=== PATIENT | male | born 1935 | race Caucasian/White ===

== ENCOUNTER 2017-01-17 11:19 | Observation (INO) | payer MEDICARE, OTHER ==
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
[2017-01-17 12:16] LABS: ABSOLUTE BASOPHILS # (AUTO) 0.1 10^3/uL (0.0-0.2); ABSOLUTE EOSINOPHILS # (AUTO) 0.5 10^3/uL (0.0-0.6); ABSOLUTE LYMPHOCYTES (AUTO) 2.4 10^3/uL (0.5-4.7); ABSOLUTE MONOCYTES (AUTO) 0.8 10^3/uL (0.1-1.4); ABSOLUTE NEUT (AUTO) 3.7 10^3/uL (1.7-8.2); BASOPHILS % (AUTO) 0.7 % (0-2); EOSINOPHILS % (AUTO) 6.9 % (0-6); HEMATOCRIT 40.9 % (37.9-51.0); HEMOGLOBIN 13.7 g/dL (13.5-17.0); HGB HCT DIFFERENCE 0.2; LYMPHOCYTES % (AUTO) 32.7 % (13-45); MEAN CORPUSCULAR HEMOGLOBIN 28.7 pg (27.0-33.4); MEAN CORPUSCULAR HGB CONC 33.5 g/dL (32.0-36.0); MEAN CORPUSCULAR VOLUME 86 fl (80-97); MONOCYTES % (AUTO) 10.2 % (3-13); RED BLOOD COUNT 4.77 10^6/uL (4.35-5.55); RED CELL DISTRIBUTION WIDTH 14.8 % (11.5-14.0); SEGMENTED NEUTROPHILS % (AUTO) 49.5 % (42-78); WHITE BLOOD COUNT 7.4 10^3/uL (4.0-10.5)
[2017-01-17 12:19] LABS: PARTIAL THROMBOPLASTIN TIME 32.1 SEC (23.5-35.8); PROTHROMBIN TIME 13.5 SEC (11.4-15.4)
[2017-01-17 12:44] LABS: ALANINE AMINOTRANSFERASE 25 U/L (21-72); ALBUMIN 3.7 g/dL (3.5-5.0); ALKALINE PHOSPHATASE 90 U/L (38-126); ANION GAP 12 (5-19); ASPARTATE AMINO TRANSFERASE 24 U/L (17-59); BILIRUBIN,DIRECT 0.3 mg/dL (0.0-0.4); BILIRUBIN,TOTAL 0.7 mg/dL (0.2-1.3); BLOOD UREA NITROGEN 18 mg/dL (7-20); CALCIUM 8.8 mg/dL (8.4-10.2); CARBON DIOXIDE 23 mmol/L (22-30); CHLORIDE 107 mmol/L (98-107); CREATINE KINASE 104 U/L (55-170); CREATININE RESULT 0.99 mg/dL (0.52-1.25); GLUCOSE 105 mg/dL (75-110); POTASSIUM 4.2 mmol/L (3.6-5.0); SODIUM 141.8 mmol/L (137-145); TOTAL PROTEIN 6.6 g/dL (6.3-8.2)
[2017-01-17 13:00] LABS: CREATINE KINASE MB 1.35 ng/mL (<4.55)
[2017-01-17 13:02] LABS: TROPONIN I < 0.012 ng/mL
[2017-01-17] MEDS ORDERED: ONDANSETRON 4 MG TAB.RAPDIS PO PRN (13:24)
[2017-01-17] MEDS ORDERED: ACETAMINOPHEN 325 MG TABLET PO PRN (13:24)
[2017-01-17] MEDS ORDERED: ONDANSETRON HCL INJ/PF 4 MG/2 ML SDV IV PRN (14:35)
[2017-01-17] MEDS ORDERED: ENOXAPARIN SODIUM INJ 40 MG/0.4 ML DISP.SYRIN SUBCUT ONE (15:00)
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
--- NOTE | 2017-01-17 19:20 | XCELERA REPORT ---
[address] [address] Transthoracic Echocardiogram Report Name: REED BREWSTER Age: 81 yrs Gender: Male : 1935 Patient Status: Inpatient Patient Location: \S\[facility]\S\A Study Date: 01/17/2017 04:25 PM Height: 67 in Weight: 159 lb BSA: 1.8 m2 Procedure: A complete two-dimensional transthoracic echocardiogram was performed (2D, M-mode, spectral and color flow Doppler). The study was technically difficult with many images being suboptimal in quality. Reason For Study: Right facial droop, right side weakness Ordering Physician: MARIA VICTORIA FULTON Performed By: Gokul Wright Interpretation Summary The study was technically difficult with many images being suboptimal in quality. Left ventricular systolic function is normal. Doppler measurements suggest impaired left ventricular relaxation, which is associated with grade I/IV or mild diastolic dysfunction There is borderline concentric left ventricular hypertrophy. The left ventricle is grossly normal size. Regional wall motion abnormalities cannot be excluded due to limited visualization. The right ventricle is borderline dilated. The right ventricular systolic function is normal. The left atrial size is normal. The right atrium is normal in size There is a trace to mild amount of mitral regurgitation There is no mitral valve stenosis. No aortic regurgitation is present. There is no aortic valve stenosis There is a trace to mild amount of tricuspid regurgitation There is mild pulmonary hypertension by echo Right ventricular systolic pressure is estimated to be elevated at 30- 40mmHg. Minimal pericardial effusion. No definite cardiac source of CVA/TIA noted on this particular trans- thoracic study. Consider REGINA if clinically indicated. May consider mobile cardiac telemetry monitoring (MCT) for ruling out transient AFIB. MMode/2D Measurements \T\ Calculations RVDd: 2.3 cm LVIDd: 6.0 cm FS: 26.3 % Ao root diam: 3.3 cm IVSd: 0.78 cm LVIDs: 4.4 cm EDV(Teich): 177.4 ml LVPWd: 0.79 cm ESV(Teich): 87.4 ml Ao root area: 8.4 cm2 EF(Teich): 50.7 % LA dimension: 3.4 cm Doppler Measurements \T\ Calculations MV E max marixa: MV P1/2t max marixa: Ao V2 max: LV V1 max P.6 cm/sec 69.1 cm/sec 148.6 cm/sec 2.3 mmHg MV A max marixa: MV P1/2t: 51.3 msec Ao max PG: LV V1 max: 97.2 cm/sec 8.8 mmHg 75.5 cm/sec MV E/A: 0.70 MVA(P1/2t): 4.3 cm2 MV dec slope: 394.8 cm/sec2 PA V2 max: TR max marixa: RAP systole: 94.3 cm/sec 280.4 cm/sec 10.0 mmHg PA max PG: TR max P.7 mmHg 3.6 mmHg RVSP(TR): 41.7 mmHg Left Ventricle The left ventricle is grossly normal size. There is borderline concentric left ventricular hypertrophy. Left ventricular systolic function is normal. Doppler measurements suggest impaired left ventricular relaxation, which is associated with grade I/IV or mild diastolic dysfunction. Regional wall motion abnormalities cannot be excluded due to limited visualization. Right Ventricle The right ventricle is borderline dilated. There is normal right ventricular wall thickness. The right ventricular systolic function is normal. Atria The right atrium is normal in size. The left atrial size is normal. Interarterial septum not well visualized and not well dopplered. Cannot comment on ASD/PFO presence. Mitral Valve The mitral valve leaflets are sclerotic, but show no functional abnormalities. There is no mitral valve stenosis. There is a trace to mild amount of mitral regurgitation. Aortic Valve The aortic valve is not well visualized secondary to technical limitations. There is no aortic valve stenosis. No aortic regurgitation is present. Tricuspid Valve The tricuspid valve is not well visualized secondary to technical limitations. There is no tricuspid stenosis. There is a trace to mild amount of tricuspid regurgitation. There is mild pulmonary hypertension by echo. Right ventricular systolic pressure is estimated to be elevated at 30-40mmHg. Pulmonic Valve The pulmonic valve is not well visualized. Great Vessels The aortic root is not well visualized. The inferior vena cava was not well visualized. Effusions Minimal pericardial effusion. Incidental Findings No definite cardiac source of CVA/TIA noted on this particular trans- thoracic study. Consider REGINA if clinically indicated. May consider mobile cardiac telemetry monitoring (MCT) for ruling out transient AFIB. : MARIA VICTORIA FULTON > Maris Wiggins
--- NOTE | 2017-01-17 19:35 | EKG REPORT ---
SEVERITY:- ABNORMAL ECG - SINUS RHYTHM LEFT ANTERIOR FASCICULAR BLOCK : Confirmed by: Maris Wiggins 17-Jan-2017 19:35:20
[2017-01-17] MEDS ORDERED: ATORVASTATIN CALCIUM 40 MG TABLET PO SCH (22:00)
[2017-01-18] MEDS ORDERED: ENOXAPARIN SODIUM INJ 40 MG/0.4 ML DISP.SYRIN SUBCUT SCH (08:00)
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
[2017-01-18] MEDS ORDERED: ASPIRIN 81 MG TABLET, ENT COATED PO SCH (10:00)
[2017-01-18 10:37] VITALS: BP 179/83
== END 2017-01-18 11:05 | disposition home or self-care (01) ==
LOC: ER 11:19 → EH 13:37 → 3W 01-18 00:22
PROVIDERS: ADMIT Emergency Medicine; ATTEND Emergency Medicine
DX: G45.9 Transient cerebral ischemic attack, unspecified (principal); M81.0 Age-related osteoporosis without current pathological fracture; M79.2 Neuralgia and neuritis, unspecified; R11.2 Nausea with vomiting, unspecified; Z79.899 Other long term (current) drug therapy; Z79.82 Long term (current) use of aspirin; Z98.890 Other specified postprocedural states; Z82.49 Family history of ischemic heart disease and other diseases of the circulatory system; Z87.11 Personal history of peptic ulcer disease; Z87.19 Personal history of other diseases of the digestive system
CPT/HCPCS: 93005; 99285; 96372; 96374; 36415; 82553; 82550; 85025; 85610; 85730; 80053; 84484; 93306; 93880; 70551; 71010; 70450; 93010; G0378 ×2; A9270; J1650 ×2; J3490 ×2; J2405

== ENCOUNTER 2017-01-28 12:49 | Inpatient (IN) | payer MEDICARE, OTHER ==
[2017-01-28 13:21] LABS: ABSOLUTE BASOPHILS # (AUTO) 0.1 10^3/uL (0.0-0.2); ABSOLUTE EOSINOPHILS # (AUTO) 0.7 10^3/uL (0.0-0.6); ABSOLUTE LYMPHOCYTES (AUTO) 1.9 10^3/uL (0.5-4.7); ABSOLUTE MONOCYTES (AUTO) 0.7 10^3/uL (0.1-1.4); ABSOLUTE NEUT (AUTO) 3.1 10^3/uL (1.7-8.2); EOSINOPHILS % (AUTO) 11.1 % (0-6); HEMATOCRIT 41.7 % (37.9-51.0); HEMOGLOBIN 13.9 g/dL (13.5-17.0); LYMPHOCYTES % (AUTO) 29.3 % (13-45); MEAN CORPUSCULAR HEMOGLOBIN 28.9 pg (27.0-33.4); MEAN CORPUSCULAR HGB CONC 33.4 g/dL (32.0-36.0); MEAN CORPUSCULAR VOLUME 87 fl (80-97); MONOCYTES % (AUTO) 10.1 % (3-13); RED BLOOD COUNT 4.81 10^6/uL (4.35-5.55); RED CELL DISTRIBUTION WIDTH 14.9 % (11.5-14.0); SEGMENTED NEUTROPHILS % (AUTO) 48.5 % (42-78); WHITE BLOOD COUNT 6.5 10^3/uL (4.0-10.5)
[2017-01-28 13:24] LABS: PROTHROMBIN TIME 13.4 SEC (11.4-15.4)
[2017-01-28 13:25] LABS: PARTIAL THROMBOPLASTIN TIME 26.5 SEC (23.5-35.8)
--- NOTE | 2017-01-28 13:30 | ER Document Report ---
ED General - General Chief Complaint: S/S of Possible Stroke Stated Complaint: POSSIBLE STROKE Time Seen by Provider: 01/28/17 13:17 TRAVEL OUTSIDE OF THE [place] IN LAST 30 DAYS: No - HPI Patient complains to provider of: left facial droop left upper extremity weakness left lower extremity weakne Notes: Patient was at his PCPs office after being reevaluated from admission one week prior for TIA. At that time patient had a right upper right lower extremity weakness. MRI Dopplers were performed on negative patient was discharged home a baby aspirin. During his office visit at 1205 patient sure that difficulty speaking will left face left upper left lower extremity paralysis denies any trauma. Patient was transported to the emergency room for further evaluation. Upon my evaluation patient is alert oriented with some garbled slurred speech - Related Data Allergies/Adverse Reactions: morphine Allergy (Verified 01/17/17 14:34) Past Medical History - Social History Smoking Status: Unknown if Ever Smoked Family History: Hypertension - Past Medical History Cardiac Medical History: Denies: Hx Coronary Artery Disease, Hx Heart Attack, Hx Hypertension Pulmonary Medical History: Reports: Hx Pneumonia Neurological Medical History: Denies: Hx Cerebrovascular Accident, Hx Seizures Endocrine Medical History: Denies: Hx Diabetes Mellitus Type 1, Hx Diabetes Mellitus Type 2 Musculoskeltal Medical History: Reports Hx Arthritis Past Surgical History: Reports: Hx Bowel Surgery - Surgery for stomach ulcers, surgery for locked intestines 2, 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 - Immunizations Hx Diphtheria, Pertussis, Tetanus Vaccination: Yes Review of Systems - Review of Systems Constitutional: No symptoms reported EENT: No symptoms reported Cardiovascular: No symptoms reported Respiratory: No symptoms reported Gastrointestinal: No symptoms reported Genitourinary: No symptoms reported Male Genitourinary: No symptoms reported Musculoskeletal: Other - Upper extremity lower extremity weakness facial droop Skin: No symptoms reported Hematologic/Lymphatic: No symptoms reported Neurological/Psychological: No symptoms reported Physical Exam - Vital signs Vitals: Temp Pulse Resp BP Pulse Ox 97.6 F 61 23 H 176/87 H 96 01/28/17 12:55 01/28/17 12:55 01/28/17 12:55 01/28/17 12:55 01/28/17 12:55 Interpretation: Normal - General General appearance: Appears well, Alert - HEENT Head: Normocephalic, Atraumatic Eyes: Normal Pupils: PERRL - Respiratory Respiratory status: No respiratory distress Chest status: Nontender Breath sounds: Normal Chest palpation: Normal - Cardiovascular Rhythm: Regular Heart sounds: Normal auscultation Murmur: No - Abdominal Inspection: Normal Distension: No distension Bowel sounds: Normal Tenderness: Nontender Organomegaly: No organomegaly - Back Back: Normal, Nontender - Extremities General upper extremity: Normal inspection, Nontender, Normal color, Normal ROM , Normal temperature General lower extremity: Normal inspection, Nontender, Normal color, Normal ROM , Normal temperature, Normal weight bearing. No: Al's sign - Neurological Neuro grossly intact: Yes Cognition: Normal Sabine Coma Scale Eye Opening: Spontaneous Sabine Coma Scale Verbal: Oriented Sabine Coma Scale Motor: Obeys Commands Sabine Coma Scale Total: 15 Notes: Please refer to NIH score - Psychological Associated symptoms: Normal affect, Normal mood - Skin Skin Temperature: Warm Skin Moisture: Dry Skin Color: Normal Course - Re-evaluation Re-evalutation: 01/28/17 13:26 Patient presentation concerning for stroke. Patient has left facial droop and slurred speech complete paralysis of the left upper family left lower extremity. Patient was seen this recently one week ago evaluated for TIA. Symptoms started 1205. Patient's NIH score is as documented. I did discuss at this time with patient waiting for family members to arrive about administration of TPA 01/28/17 13:56 Did discuss TPA with family at bedside. At this time I did discuss with radiology we will attempt to obtain an MRI to further evaluate the patient as family is unsure about giving tpa at this time 01/28/17 14:19 Discussed with [facility] neurology [place] who encourages tpa before mri. Agrees that patient could be a candidate for 4.5 hours out. Again discuss with family. States that they will at the scene with MRI says but states that they are leaning towards TPA at this time. 01/28/17 14:56 MRI confirmed right-sided stroke. Patient's NIH score is still the same nurse been no improvement of the patient's symptoms. Again discuss with family family this time agrees with thrombolytics as a the patient is a good candidate. TPA will be administered. I did discuss with hospitalist agrees to admit the patient to ICU for further evaluation. 01/28/17 15:03 01/28/17 18:51 Patient did have improvement of symptoms after ministration of TPF - Vital Signs Vital signs: Temp Pulse Resp BP Pulse Ox 97.9 F 61 19 162/78 H 100 01/28/17 17:03 01/28/17 18:35 01/28/17 18:35 01/28/17 18:35 01/28/17 18:35 - Laboratory Result Diagrams: 01/28/17 13:11 01/28/17 13:11 Laboratory results interpreted by me: 01/28/17 01/28/17 13:11 13:11 RDW 14.9 H Eosinophils % 11.1 H Absolute Eosinophils 0.7 H Chloride 108 H Direct Bilirubin 0.5 H Critical Care Note - Critical Care Note Total time excluding time spent on procedures (mins): 90 Comments: Time spent discussion the administration TPA educating family educate patient reevaluating patient discussing with consulting neurology at [facility] and the hospitalist Discharge - Discharge Clinical Impression: acute right-sided CVA Condition: Good Disposition: ADMITTED INPATIENT Admitting Provider: Hospitalist - [facility] Unit Admitted: ICU ED NIH Stroke Scale - NIH Stroke Scale *: 1. NIH scale should be completed with appropriate accompanying assessment tools. *: 2. The NIH should reflect what the patient is capable of doing and should not be coached by the clinician. 1a. Level of Consciousness: 0=Alert;keenly responsive -: 1=Drowsy -: 2=Obtunded -: 3=Coma/unresponsive or reflex to noxious stimuli. 1a. Responses: 0 1b. Orientation Questions: a. What month is it? -: b. How old are you? -: 0=Answers both questions correctly. -: 1=Answers one question correctly or patient is intubated or has orotracheal trauma. -: 2=Answers neither question correctly. 1b. Responses: 0 1c. Response to commands: a. Open and close eyes? -: b. Grocery Stock Clerk and release hand? -: Credit is given despite weakness. Demonstration of task is permitted. Substitute command if hands cannot be used. -: 0=Performs both tasks correctly -: 1=Performs one task correctly -: 2=Performs neither task correctly 1c. Responses: 0 2. Gaze: Establish eye contact and instruct patient to "Follow my finger" -: 0=Normal -: 1=Partial gaze palsy. Gaze is abnormal in one or both eyes, but where forced deviation or total gaze paresis is not present. -: 2=Forced deviation or total gaze paresis. 2. Responses: 0 3. Visual Sanders: Sees fingers in all four quadrants. -: 0=No visual loss. -: 1=Partial hemianopsia. -: 2=Complete hemianopsia. -: 3=Bilateral hemianopsia (including Cortical blindness) 3. Responses: 0 4. Facial Movement: Instruct patient to: -: a. Show me your teeth -: b. Raise your eyebrows -: c. Close your eyes -: d. Smile -: 0=Normal symmetrical movement -: 1=Minor paralysis (flattened nasolabial fold, asymmetry on smiling). -: 2=Partial paralysis (total or near total paralysis of lower face). -: 3=Complete paralysis of upper and lower face 4. Responses: 3 5. Motor functions (left arm): Alternate sides and extend each arm with palms down (90 degrees if sitting or 45 degrees for supine). -: 0=No drift;limb holds for full 10 seconds. -: 1=Drift; limb holds but drifts down before full 10 seconds, but does not hit bed. -: 2=Some effort against gravity; limb cannot get to or maintain position. -: 3=No effort against gravity; limb falls. -: 4=No movement. -: UN=Amputation, joint fusion, explain in comments. 5. Responses (left arm): 4 5. Motor Functions (right arm): Alternate sides and extend each arm with palms down (90 degrees if sitting or 45 degrees for supine). -: 0=No drift;limb holds for full 10 seconds. -: 1=Drift; limb holds but drifts down before full 10 seconds, but does not hit bed. -: 2=Some effort against gravity; limb cannot get to or maintain position. -: 3=No effort against gravity; limb falls. -: 4=No movement. -: UN=Amputation, joint fusion, explain in comments. 5. Responses (right arm): 0 6. Motor Functions (left leg): With patient lying supine, alternate sides and extend each leg (30 degrees always while supine). -: 0=No drift, leg holds position for full 5 seconds -: 1=Drift; leg falls before full 5 seconds but does not hit bed. -: 2=Some effort against gravity, leg falls to bed but some effort against gravity. -: 3=No effort against gravity, leg falls to bed immediately. -: 4=No movement. -: UN=Amputation, joint fusion; explain in comments. 6. Responses (left leg): 4 6. Motor Functions (right leg): With patient lying supine, alternate sides and extend each leg (30 degrees always while supine). -: 0=No drift, leg holds position for full 5 seconds -: 1=Drift; leg falls before full 5 seconds but does not hit bed. -: 2=Some effort against gravity, leg falls to bed but some effort against gravity. -: 3=No effort against gravity, leg falls to bed immediately. -: 4=No movement. -: UN=Amputation, joint fusion; explain in comments. 6. Responses (right leg): 0 7. Limb Ataxia: With eyes open instruct patient to: -: a. "Touch your finger to your nose". -: b. "Touch your heel to your ruelas" -: 0=Absent -: 1=Present in one limb. -: 2=Present in two limbs. -: UN=Amputation or joint fusion; explain in comments. 7. Responses: 0 8. Sensory: Test sensation using pinprick or noxious stimuli. Test as many body parts as possible. -: 0=Normal;no sensory loss -: 1=Mile to moderate sensory loss (patient feels pin prick but is less sharp on affected side). -: 2=Severe or total sensory loss. 8. Responses: 0 9. Best Language: Instruct patient to: -: a. "Describe what you see in this picture." -: b. "Name the items in this picture." -: c. "Read these sentences." -: 0=No aphasia, normal -: 1=Mild to moderate aphasia. -: 2=Severe aphasia -: 3=Mute, global aphasia, no usable speech or auditory comprehension. 9. Responses: 1 10. Articulation, Dysarthia: Instruct patient to: -: "Read these words" or "Repeat these words" -: 0=Normal -: 1=Mild to moderate; patient may slur some words but can be understood without difficulty. -: 2=Severe; patients speech so slurred as to be unintelligible in the absence of dysphasia. -: UN=Intubated or other physical barrier, explain in comments. 10. Responses: 1 11. Extinction or inattention: 0=No abnormality -: 1= Visual, tactile, auditory, spatial, or personal inattention or extinction to bilateral simulation in one or the sensory modalities. -: 2=Profound alexis-inattention or alexis-inattention to more than one modality; does not recognize own hand. 11. Responses: 0 Total Score: 13
[2017-01-28 13:40] LABS: ALANINE AMINOTRANSFERASE 28 U/L (21-72); ALBUMIN 3.9 g/dL (3.5-5.0); ALKALINE PHOSPHATASE 91 U/L (38-126); ANION GAP 6 (5-19); ASPARTATE AMINO TRANSFERASE 30 U/L (17-59); BILIRUBIN,DIRECT 0.5 mg/dL (0.0-0.4); BILIRUBIN,TOTAL 0.7 mg/dL (0.2-1.3); BLOOD UREA NITROGEN 19 mg/dL (7-20); CALCIUM 9.1 mg/dL (8.4-10.2); CARBON DIOXIDE 27 mmol/L (22-30); CHLORIDE 108 mmol/L (98-107); CREATINE KINASE 65 U/L (55-170); CREATININE RESULT 0.93 mg/dL (0.52-1.25); GLUCOSE 99 mg/dL (75-110); POTASSIUM 4.4 mmol/L (3.6-5.0); SODIUM 141.2 mmol/L (137-145); TOTAL PROTEIN 6.9 g/dL (6.3-8.2)
[2017-01-28 13:53] LABS: CREATINE KINASE MB 1.07 ng/mL (<4.55)
[2017-01-28 13:55] LABS: TROPONIN I < 0.012 ng/mL
[2017-01-28] MEDS ORDERED: LABETALOL HCL INJ 20 MG/4 ML DISP.SYRIN IV ONE (13:57)
[2017-01-28] MEDS ORDERED: ALTEPLASE INJ 100 MG VIAL ONE (14:37)
[2017-01-28] MEDS ORDERED: ALBUTEROL SULFATE 0.083% NEB 2.5 MG/3 ML AMPUL NEB PRN (15:34)
[2017-01-28] MEDS ORDERED: ACETAMINOPHEN 325 MG TABLET PO PRN (15:34)
[2017-01-28] MEDS ORDERED: ONDANSETRON 4 MG TAB.RAPDIS PO PRN (15:34)
--- NOTE | 2017-01-28 15:54 | PDOC H&P ---
History of Present Illness Admission Date/PCP: RADHA NANCE Patient complains of: Left hemiparesis History of Present Illness: REED BREWSTER is a 81 year old male who is in the hospital several weeks ago with a TIA with an unremarkable workup who presents with an acute CVA. Patient was with his urgent care and was sitting in a chair and then noticed that he was unable to move his left side and was unable to speak. Since that time he has had some significant dysarthria but continues with left-sided hemiparesis. His strength was initially 0 out of 5. Patient had a head CT which was negative. The emergency physician appropriately advised to give thrombolytics. The patient's family was uncertain and an MRI was done to evaluate. Patient was found to have an acute right sided davin infarction. Neurology was consulted by the emergency physician who agreed the patient should have thrombolytics. Patient's is at the bedside agreed to this. With time my exam the patient was about to receive thrombolytics in he did have some improvement and was able to move his left arm and leg slightly. The decision was made to go ahead and give the patient thrombolytics in spite of having some slight improvement. Patient denies any visual loss. He denies any dysphagia but has had the dysarthria. He denies any sensory loss just has the left-sided hemiparesis. Past Medical History Cardiac Medical History: Denies: Coronary Artery Disease, Myocardial Infarction, Hypertension Pulmonary Medical History: Reports: Pneumonia EENT Medical History: Reports: None Neurological Medical History: Denies: Seizures Endocrine Medical History: Reports: None Renal/ Medical History: Reports: None Malignancy Medical History: Reports: None GI Medical History: Reports: None Musculoskeltal Medical History: Reports: Arthritis Skin Medical History: Reports: None Psychiatric Medical History: Reports: None Traumatic Medical History: Reports: None Past Surgical History Past Surgical History: Reports: None Social History Information Source: Patient Lives with: Spouse/Significant other Smoking Status: Never Smoker Frequency of Alcohol Use: None Hx Recreational Drug Use: No Drugs: None Hx Prescription Drug Abuse: No - Advance Directive Resuscitation Status: Full Code Surrogate healthcare decision maker:: Family History Family History: Hypertension Parental Family History Reviewed: Yes Children Family History Reviewed: No Sibling(s) Family History Reviewed.: No Medication/Allergy Home Medications: Pregabalin [Lyrica 100 mg Capsule] 100 mg PO Q12 01/17/17 Tramadol HCl [Ultram 50 mg Tablet] 50 mg PO Q12 01/17/17 Acetaminophen [Tylenol 325 mg Tablet] 650 mg PO Q4HP PRN tablet 01/18/17 Aspirin [Ecotrin 81 mg EC Tablet] 81 mg PO DAILY tabec 01/18/17 Ondansetron [Zofran Odt 4 mg Tablet] 4 mg PO Q4HP PRN tab.rapdis 01/18/17 Allergies/Adverse Reactions: morphine Allergy (Verified 01/17/17 14:34) Review of Systems Constitutional: ABSENT: chills, fever(s), headache(s), weight gain, weight loss Eyes: ABSENT: visual disturbances Ears: ABSENT: hearing changes Cardiovascular: ABSENT: chest pain, dyspnea on exertion, edema, orthropnea, palpitations Respiratory: ABSENT: cough, hemoptysis Gastrointestinal: ABSENT: abdominal pain, constipation, diarrhea, hematemesis, hematochezia, nausea, vomiting Genitourinary: ABSENT: dysuria, hematuria Musculoskeletal: ABSENT: joint swelling Integumentary: ABSENT: rash, wounds Neurological: PRESENT: as per HPI Psychiatric: ABSENT: anxiety, depression Endocrine: ABSENT: cold intolerance, heat intolerance, polydipsia, polyuria Hematologic/Lymphatic: ABSENT: easy bleeding, easy bruising Physical Exam Vital Signs: Temp Pulse Resp BP Pulse Ox 97.6 F 58 L 16 178/97 H 100 01/28/17 12:55 01/28/17 15:20 01/28/17 15:20 01/28/17 15:20 01/28/17 15:20 Intake & Output 01/27/17 01/28/17 01/29/17 06:59 06:59 06:59 Weight 62.6 kg General appearance: PRESENT: no acute distress, well-developed, well-nourished Head exam: PRESENT: atraumatic, normocephalic Eye exam: PRESENT: conjunctiva pink, EOMI, PERRLA. ABSENT: scleral icterus Ear exam: PRESENT: normal external ear exam Mouth exam: PRESENT: moist, tongue midline Neck exam: ABSENT: carotid bruit, JVD, lymphadenopathy, thyromegaly Respiratory exam: PRESENT: clear to auscultation mariana. ABSENT: rales, rhonchi, wheezes Cardiovascular exam: PRESENT: RRR. ABSENT: diastolic murmur, rubs, systolic murmur Vascular exam: PRESENT: normal capillary refill GI/Abdominal exam: PRESENT: normal bowel sounds, soft. ABSENT: distended, guarding, mass, organolmegaly, rebound, tenderness Rectal exam: PRESENT: deferred Extremities exam: ABSENT: calf tenderness, clubbing, pedal edema Neurological exam: PRESENT: alert, awake, oriented to person, oriented to place , oriented to time, oriented to situation, CN II-XII grossly intact, motor sensory deficit - Patient has right-sided facial droop along with left-sided hemiparesis. Strength is 1 out of 5 on the left upper and lower extremity. Also has some dysarthria. Psychiatric exam: PRESENT: appropriate affect Skin exam: PRESENT: dry, intact, warm. ABSENT: cyanosis, rash Results Laboratory Results: 01/28/17 13:11 01/28/17 13:11 01/28/17 01/28/17 13:11 13:11 WBC 6.5 RBC 4.81 Hgb 13.9 Hct 41.7 MCV 87 MCH 28.9 MCHC 33.4 RDW 14.9 H Plt Count 277 Seg Neutrophils % 48.5 Lymphocytes % 29.3 Monocytes % 10.1 Eosinophils % 11.1 H Basophils % 1.0 Absolute Neutrophils 3.1 Absolute Lymphocytes 1.9 Absolute Monocytes 0.7 Absolute Eosinophils 0.7 H Absolute Basophils 0.1 Sodium 141.2 Potassium 4.4 Chloride 108 H Carbon Dioxide 27 Anion Gap 6 BUN 19 Creatinine 0.93 Est GFR ( Amer) > 60 Est GFR (Non-Af Amer) > 60 Glucose 99 Calcium 9.1 Total Bilirubin 0.7 AST 30 ALT 28 Alkaline Phosphatase 91 Total Protein 6.9 Albumin 3.9 01/28/17 01/28/17 13:11 13:11 Creatine Kinase 65 CK-MB (CK-2) 1.07 Troponin I < 0.012 Impressions: Chest X-Ray 01/28/17 12:55 IMPRESSION: No acute findings Head CT 01/28/17 12:55 IMPRESSION: No acute findings Head MRI 01/28/17 13:54 IMPRESSION: Diffusion-weighted images are positive for acute nonhemorrhagic infarct in the right half of the davin Elsewhere, moderate chronic small vessel ischemic changes are present Assessment & Plan - Diagnosis (1) CVA (cerebral vascular accident) Is this a current diagnosis for this admission?: YesPlan: Patient was identified to have a right davin CVA on MRI. Patient is in the process of getting thrombo-lytics as we speak. We'll admit the patient to the intensive care unit for postthrombolytic care. Will consult PT OT and speech therapy to start tomorrow. Patient has been on aspirin every day. He was here last month and had an echocardiogram which showed no thrombus. He also had carotid Dopplers done which showed no stenosis. Those tests will not be repeated. (2) Neuralgia Is this a current diagnosis for this admission?: Yes (3) Osteoporosis Is this a current diagnosis for this admission?: Yes - Time Time Spent: 50 to 70 Minutes - Inpatient Certification Medical Necessity: Need Close Monitoring Due to Risk of Patient Decompensation, Need for Neurological Checks - Plan Summary Plan Summary: Patient is admitted to the intensive care unit for close monitoring post thrombolytic therapy
--- NOTE | 2017-01-28 16:59 | EKG REPORT ---
SEVERITY:- ABNORMAL ECG - SINUS RHYTHM LAD, CONSIDER LEFT ANTERIOR FASCICULAR BLOCK : Confirmed by: Maris Wiggins 28-Jan-2017 16:57:46
[2017-01-28] MEDS ORDERED: HYDRALAZINE HCL INJ/PF 20 MG/1 ML SDV IV PRN (17:56)
[2017-01-28] MEDS ORDERED: PROPOFOL 0 ML IV ONE (18:01)
[2017-01-28] MEDS: NORMAL SALINE 1000 ML 1,000 ML IV PRN (19:29)
[2017-01-28] MEDS: FAMOTIDINE INJ/PF 20 MG/2 ML SDV IV SCH (21:20)
[2017-01-29 04:43] LABS: HEMATOCRIT 41.8 % (37.9-51.0); HEMOGLOBIN 14.1 g/dL (13.5-17.0); HGB HCT DIFFERENCE 0.5; MEAN CORPUSCULAR HEMOGLOBIN 28.7 pg (27.0-33.4); MEAN CORPUSCULAR HGB CONC 33.9 g/dL (32.0-36.0); MEAN CORPUSCULAR VOLUME 85 fl (80-97); RED BLOOD COUNT 4.92 10^6/uL (4.35-5.55); RED CELL DISTRIBUTION WIDTH 14.3 % (11.5-14.0); WHITE BLOOD COUNT 9.8 10^3/uL (4.0-10.5)
[2017-01-29] MEDS: NORMAL SALINE 1000 ML 1,000 ML IV PRN (05:09)
[2017-01-29 05:12] LABS: ALANINE AMINOTRANSFERASE 28 U/L (21-72); ALBUMIN 3.6 g/dL (3.5-5.0); ALKALINE PHOSPHATASE 83 U/L (38-126); ANION GAP 9 (5-19); ASPARTATE AMINO TRANSFERASE 25 U/L (17-59); BILIRUBIN,DIRECT 0.3 mg/dL (0.0-0.4); BILIRUBIN,TOTAL 0.8 mg/dL (0.2-1.3); BLOOD UREA NITROGEN 15 mg/dL (7-20); CALCIUM 9.3 mg/dL (8.4-10.2); CARBON DIOXIDE 25 mmol/L (22-30); CHLORIDE 108 mmol/L (98-107); CREATININE RESULT 0.81 mg/dL (0.52-1.25); GLUCOSE 89 mg/dL (75-110); POTASSIUM 4.3 mmol/L (3.6-5.0); SODIUM 142.4 mmol/L (137-145); TOTAL PROTEIN 5.8 g/dL (6.3-8.2)
[2017-01-29] MEDS: PREGABALIN 100 MG CAPSULE PO SCH ×2 (09:29→21:51)
[2017-01-29] MEDS: FAMOTIDINE INJ/PF 20 MG/2 ML SDV IV SCH ×2 (09:30→22:34)
[2017-01-29] MEDS ORDERED: ASPIRIN/DIPYRIDAMOLE 25-200 MG 1 CAP.SR CPMP.12HR PO SCH (10:00)
--- NOTE | 2017-01-29 10:10 | PDOC PROGRESS REPORT ---
Subjective Progress Note for:: 01/29/17 Subjective:: Patient denies any complaints. He has had resolution of his left-sided weakness Physical Exam Vital Signs: Temp Pulse Resp BP Pulse Ox 97.7 F 68 19 150/80 H 98 01/29/17 08:00 01/29/17 09:37 01/29/17 09:37 01/29/17 09:00 01/29/17 09:37 Intake & Output 01/28/17 01/29/17 01/30/17 06:59 06:59 06:59 Intake Total 1175 Output Total 1825 100 Balance -650 -100 Weight 60 kg General appearance: PRESENT: no acute distress Eye exam: PRESENT: conjunctiva pink. ABSENT: scleral icterus Ear exam: PRESENT: normal external ear exam Mouth exam: PRESENT: moist, tongue midline Neck exam: ABSENT: JVD Respiratory exam: PRESENT: clear to auscultation mariana. ABSENT: rales, rhonchi, wheezes Cardiovascular exam: PRESENT: RRR. ABSENT: diastolic murmur, rubs, systolic murmur GI/Abdominal exam: PRESENT: normal bowel sounds, soft. ABSENT: distended, guarding, mass, organolmegaly, rebound, tenderness Extremities exam: ABSENT: calf tenderness, clubbing, pedal edema Neurological exam: PRESENT: alert, awake, oriented to person, oriented to place , oriented to time, oriented to situation, CN II-XII grossly intact. ABSENT: motor sensory deficit Psychiatric exam: PRESENT: appropriate affect Skin exam: PRESENT: dry, intact, warm. ABSENT: cyanosis, rash Results Laboratory Results: 01/29/17 04:20 01/29/17 04:20 01/29/17 01/29/17 04:20 04:20 WBC 9.8 RBC 4.92 Hgb 14.1 Hct 41.8 MCV 85 MCH 28.7 MCHC 33.9 RDW 14.3 H Plt Count 272 Sodium 142.4 Potassium 4.3 Chloride 108 H Carbon Dioxide 25 Anion Gap 9 BUN 15 Creatinine 0.81 Est GFR ( Amer) > 60 Est GFR (Non-Af Amer) > 60 Glucose 89 Calcium 9.3 Total Bilirubin 0.8 AST 25 ALT 28 Alkaline Phosphatase 83 Total Protein 5.8 L Albumin 3.6 Impressions: Chest X-Ray 01/28/17 12:55 IMPRESSION: No acute findings Head CT 01/28/17 12:55 IMPRESSION: No acute findings Head MRI 01/28/17 13:54 IMPRESSION: Diffusion-weighted images are positive for acute nonhemorrhagic infarct in the right half of the davin Elsewhere, moderate chronic small vessel ischemic changes are present Assessment & Plan - Diagnosis (1) CVA (cerebral vascular accident) Is this a current diagnosis for this admission?: YesPlan: Patient was identified to have a right davin CVA on MRI. Patient received Lasix yesterday with complete resolution of his symptoms. We'll monitor for another 24 hours and will start on Aggrenox. He already had an echocardiogram and carotid Doppler within the last month during his previous admission. (2) Neuralgia Is this a current diagnosis for this admission?: Yes (3) Osteoporosis Is this a current diagnosis for this admission?: Yes - Time Time Spent with patient: 25-34 minutes - Inpatient Certification Medical Necessity: Need for Neurological Checks - Plan Summary Plan Summary: Transfer out of the unit to [facility] level floor.
--- NOTE | 2017-01-29 13:49 | ST Inp Modified Barium Swallow ---
Medical Diagnosis - Medical Diagnoses Medical Diagnosis Description & ICD-10 Code(s): s/sx of aspiration - ICD-10 Tx Diagnosis Coding (1) Dysphagia, oropharyngeal phase ICD-10 Code(s): R13.12 - DYSPHAGIA, OROPHARYNGEAL PHASE [place] [facility] [place]: 01[place]29[place] Date of Onset: 01/28/17 - History History Obtained From: Patient - per EMR -: Medical - per EMR; CVA, unable to move left side, unable to speak, dysarthria , neuralgia, osteoporosis, facial droop, left hemiparisis. Chest imaging WNL. Head MRI shows acute nonhemorragic infarct right davin. PMHx: PNA, arthritis, TIA. Medications: Medications Reviewed Allergies: Refer to medical record - Subjective Current Nutritional Means: PO Current PO Diet: Regular Current Symptoms: other - change in vocal quality at bedside Pain: 0/5 - Objective Assessment: Upright, Left Lateral - Food Trials Food Trials Used: Thin liquids, Pureed, Soft solids The Patient: Was Able to Self Feed - Assessment Labial Function: Within Normal Limits Lingual Function: Within Normal Limits Mandibular Function: Within Normal Limits Velo-Pharyngeal Function: Unremarkable Laryngeal Function: Volitional Swallow, Weak Cough - Pharyngeal Stage Initiation of Pharyngeal Stage: Normal Decreased Laryngeal Elevation: Yes - mild Reduced Velo-Pharyngeal Closure: no Reduced Pressure Generation: Yes - mild Reduced Tongue Base Retraction: Yes - mild Pre-Swallowing Pooling in Valleculae: None Pre-Swallowing Pooling in Pyriforms: None Reduced Thyro-Hyiod Approximation: Yes - mild Reduced Epiglottic Excursion: No Reduced Pharyngeal Peristalsis: No Multiple Swallows With: Cleared w/ Dry Swallow Post Swallow Residuals in Valleculae: Mild - on puree and soft solids Post Swallow Residuals in Pyriforms: Mild - trace on soft solids - Esophageal Stage Esophageal Stage Comments: trace residuals of soft solids below level of UES. - Impression/Summary Tracheal Aspiration: yes - x1 on large swallow of thin, delayed cough, during swallow Effective Compensatory Strategies: chin tuck - to clear residuals on second swallow Patient Presents With: Oral-Pharyngeal dysph. - mild Risk of Aspiration: Mild - Recommendations NPO: no Solid Diet Recommendations: Mechanical Soft, Chopped Meat Liquid Diet Recommendations: Thin Strict Aspitarion Precautions: Yes Dysphagia Therapy with [employer]ER: Yes, Inpatient Recommended Techniques: Fully Upright During Meal, Dry Swallow After Bite - with chin tuck, Small Bites and Sips Supervision: Distant Other Recommendations: 1) DIET: Recommend mechanical soft cut meats and thin liquids. NO STRAWS. 2) STRATEGIES: second swallow with chin tuck with all consistencies. 3) Acute care ST to treat x2 a week for dysphagia. SUMMARY: Pt presents with a mild oropharyngeal dysphagia characterized by reduced base of tongue, decrease laryngeal elevation, and reduced hyolaryngeal elevation. Pt observed to aspirate x1 on large swallow of thin, no penetration or aspiration observed on small swallows. Pt observed to have mild residuals of solids in valleculae which cleared with second swallow with chin tuck. ST spoke with MD regarding recommendations, MD in agreement and provided ST with telephone order for diet change. - Time Total Time: 25 Total Timed Minutes: 0 ST F.L. Impairment Category - Rationale Based On Rationale Based On: Clin Find., Obj Measures - Swallowing Current G8996: CJ 20-39% Impaired Goal G8997: CI 1-19% Impaired
[2017-01-30] MEDS: NORMAL SALINE 1000 ML 1,000 ML IV PRN (06:23)
[2017-01-30] MEDS ORDERED: FAMOTIDINE 20 MG TABLET PO SCH (10:00)
[2017-01-30] MEDS ORDERED: ASPIRIN/DIPYRIDAMOLE 25-200 MG 1 CAP.SR CPMP.12HR PO SCH (10:00)
--- NOTE | 2017-01-30 10:04 | Physician Advisory Note ---
Physician Advisor ProgressNote .: Pursuant to the plan for [facility], I have reviewed the medical record for this patient. Physician Advisor Statement: Possible documentation opportunities if attending agrees: 1. 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 2. "Atherosclerotic cerebrovascular dz" As always, if concerned about any unstable VS or abnormal labs, please comment on them & note what doing about them, & please document each day the potential clinical problems you are concerned could occur if pt not kept in hospital for tx at this time. Thanks for your help with documentation accuracy/specificity improvement! Yesica Peralta MD [facility] Physician Advisor, Fellow of Hospital Medicine
[2017-01-30 11:23] VITALS: BP 147/79
--- NOTE | 2017-01-30 12:29 | PDOC DISCHARGE SUMMARY ---
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 with complete resolution of symptoms after thrombolytic therapy (2) Neuralgia Is this a current diagnosis for this admission?: Yes (3) Osteoporosis Is this a current diagnosis for this admission?: Yes - Additional Information Resuscitation Status: Full Code Discharge Diet: Cardiac Discharge Activity: Activity As Tolerated, Balance Activity w/Rest, Slowly Increase Activity Home Medications: Pregabalin [Lyrica 100 mg Capsule] 100 mg PO Q12 01/17/17 Aspirin/Dipyridamole [Aggrenox 25 mg/200 mg Capsule SA] 1 cap.sr PO Q12 #60 cpmp.12hr 01/30/17 History of Present Illness History of Present Illness: REED BREWSTER is a 81 year old male who is in the hospital several weeks ago with a TIA with an unremarkable workup who presents with an acute CVA. Patient was with his urgent care and was sitting in a chair and then noticed that he was unable to move his left side and was unable to speak. Since that time he has had some significant dysarthria but continues with left-sided hemiparesis. His strength was initially 0 out of 5. Patient had a head CT which was negative. The emergency physician appropriately advised to give thrombolytics. The patient's family was uncertain and an MRI was done to evaluate. Patient was found to have an acute right sided davin infarction. Neurology was consulted by the emergency physician who agreed the patient should have thrombolytics. Patient's is at the bedside agreed to this. With time my exam the patient was about to receive thrombolytics in he did have some improvement and was able to move his left arm and leg slightly. The decision was made to go ahead and give the patient thrombolytics in spite of having some slight improvement. Patient denies any visual loss. He denies any dysphagia but has had the dysarthria. He denies any sensory loss just has the left-sided hemiparesis. Hospital Course Hospital Course: 81-year-old gentleman who presented with left-sided hemiparesis and is nondominant and. He presented to emergency room and CT scan was initially read as negative. The lamberto family was uncertain as to whether or not they wanted him to get thrombolytics an MRI was done which did confirm a right davin CVA. The patient underwent thrombolytics with alteplase. He had complete resolution of his symptoms. Patient had been on aspirin prior to presentation he sent home with Aggrenox to use. Physical Exam Vital Signs: Temp Pulse Resp BP Pulse Ox 97.6 F 68 16 147/79 H 98 01/30/17 11:14 01/30/17 11:28 01/30/17 11:28 01/30/17 11:14 01/30/17 11:14 Intake & Output 01/29/17 01/30/17 01/31/17 06:59 06:59 06:59 Intake Total 1175 1068 Output Total 1825 845 Balance -650 223 Weight 60 kg 60.3 kg General appearance: PRESENT: no acute distress Eye exam: PRESENT: conjunctiva pink. ABSENT: scleral icterus Mouth exam: PRESENT: moist, tongue midline Neck exam: ABSENT: JVD Respiratory exam: PRESENT: clear to auscultation mariana. ABSENT: rales, rhonchi, wheezes Cardiovascular exam: PRESENT: RRR. ABSENT: diastolic murmur, rubs, systolic murmur GI/Abdominal exam: PRESENT: normal bowel sounds, soft. ABSENT: distended, guarding, mass, organolmegaly, rebound, tenderness Extremities exam: ABSENT: calf tenderness, clubbing, pedal edema Neurological exam: PRESENT: alert, awake, oriented to person, oriented to place , oriented to time, oriented to situation, CN II-XII grossly intact. ABSENT: motor sensory deficit Psychiatric exam: PRESENT: appropriate affect Skin exam: PRESENT: dry, intact, warm. ABSENT: cyanosis, rash Results Laboratory Results: 01/29/17 04:20 01/29/17 04:20 Impressions: Chest X-Ray 01/28/17 12:55 IMPRESSION: No acute findings Head CT 01/28/17 12:55 IMPRESSION: No acute findings Head MRI 01/28/17 13:54 IMPRESSION: Diffusion-weighted images are positive for acute nonhemorrhagic infarct in the right half of the davin Elsewhere, moderate chronic small vessel ischemic changes are present Modified Barium Swallow 01/29/17 00:00 IMPRESSION: PLEASE SEE SPEECH PATHOLOGIST REPORT FOR FINDINGS AND RECOMMENDATIONS. Qualifiers PATEINT BEING DISCHARGED WITH ANY OF THE FOLLOWING DIAGNOSIS?: Stroke Stroke Pt being discharged on Anti-thrombolytic therapy?: Yes Stroke Pt being discharged on Anti-coagulation therapy?: Yes Stroke Pt being discharged on Statins?: Yes Plan Discharge Plan: Patient is discharged home in stable condition will follow-up with his primary care doctor in 1-2 weeks.
== END 2017-01-30 12:34 | disposition home or self-care (01) | DRG 62 ==
LOC: ER 12:49 → EH 15:35 → ICU 16:58 → 4S 01-30 00:03
PROVIDERS: ADMIT Internal Medicine; ATTEND Internal Medicine
DX: I63.9 Cerebral infarction, unspecified (principal); G81.94 Hemiplegia, unspecified affecting left nondominant side; M81.0 Age-related osteoporosis without current pathological fracture; R47.1 Dysarthria and anarthria; M19.90 Unspecified osteoarthritis, unspecified site; M79.2 Neuralgia and neuritis, unspecified; Z79.82 Long term (current) use of aspirin; Z88.6 Allergy status to analgesic agent; Z82.49 Family history of ischemic heart disease and other diseases of the circulatory system
CPT/HCPCS: 36415; 70450; 70551; 71010; 74230; 80053; 82550; 82553; 84484; 85025; 85027; 85610; 85730; 93005; 93010; 99291; 99292; G8978-GP; G8979-GP; G8987-GO; G8988-GO; G8989-GO; G8996-GN; G8997-GN; G8998-GN; J2997; J3490; J7030; S0028